=== PATIENT | female | born 1960 | race Caucasian/White ===

== ENCOUNTER 2017-03-21 02:08 | Emergency (ER) | payer OTHER ==
--- NOTE | 2017-03-21 02:27 | EDM.PDOC ---
ED HPI GENERAL MEDICAL PROBLEM - General Chief Complaint: Headache Stated Complaint: HEADACHE Time Seen by Provider: 03/21/17 02:23 - History of Present Illness INITIAL COMMENTS - FREE TEXT/NARRATIVE: HISTORY AND PHYSICAL: History of present illness: Patient is 56-year-old female presents with a concern of migraine headache and sinus infection states that similar episodes in the past she drove here herself inns requesting antibiotics for presumptive sinus infection states she had congestion with left-sided headache consistent with prior episodes that did respond to antibiotics she states at times is also triggers her migraine headache. Review of systems: As per history of present illness and below otherwise all systems reviewed and negative. Past medical history: As per history of present illness and as reviewed below otherwise noncontributory. Surgical history: As per history of present illness and as reviewed below otherwise noncontributory. Social history: No reported history of drug or alcohol abuse. Family history: As per history of present illness and as reviewed below otherwise noncontributory. Physical exam: HEENT: Atraumatic, normocephalic, pupils reactive, negative for conjunctival pallor or scleral icterus, mucous membranes moist, throat clear, neck supple, nontender, trachea midline. Lungs: Clear to auscultation, breath sounds equal bilaterally, chest nontender. Heart: S1S2, regular, negative for clicks, rubs, or JVD. Abdomen: Soft, nondistended, nontender. Negative for masses or hepatosplenomegaly. Negative for costovertebral tenderness. Pelvis: Stable nontender. Genitourinary: Deferred. Rectal: Deferred. Extremities: Atraumatic, negative for cords or calf pain. Neurovascular unremarkable. Neuro: Awake, alert, oriented. Cranial nerves II through XII unremarkable. Cerebellum unremarkable. Motor and sensory unremarkable throughout. Exam nonfocal. Diagnostics: Deferred Therapeutics: Deferred Impression: #1 sinusitis #2 migraine headache Definitive disposition and diagnosis as appropriate pending reevaluation and review of above. 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 OB/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 History: 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 Musculoskeletal History: Reports: None Neurological History: Reports: Migraines Other Neuro History: Sinus headaches, also daughter had terrible accident but 1 yr now and continues with issues they are helping her in her recovery Psychiatric History: Reports: Anxiety, Depression Other Psychiatric History: as related currently in past year with daughter requiring follow through post a bad accident Endocrine/Metabolic History: Reports: None Hematologic History: Reports: None Other Hematologic History: Lately no anemia Immunologic History: Reports: None Oncologic (Cancer) History: Reports: None Dermatologic History: Reports: None - Infectious Disease History Infectious Disease History: Reports: Chicken Pox - Past Surgical History Head Surgeries/Procedures: Reports: None HEENT Surgical History: Reports: Naso-Sinus Surgery Female Surgical History: Reports: Section Other Female Surgeries/Procedures: kidney stones blasted Neurological Surgical History: Reports: None Musculoskeletal Surgical History: Reports: Other (See Below) Other Musculoskeletal Surgeries/Procedures:: right knee surgery Social & Family History - Family History Family Medical History: Noncontributory - Tobacco Use Smoking Status *Q: Current Every Day Smoker Years of Tobacco use: 2 Packs/Tins Daily: 0.2 Second Hand Smoke Exposure: No - Caffeine Use Caffeine Use: Reports: Soda Caffeine Use Comment: 2drinks/day - Alcohol Use Days Per Week of Alcohol Use: 1 Number of Drinks Per Day: 1 Total Drinks Per Week: 1 - Recreational Drug Use Recreational Drug Use: No ED ROS GENERAL - Review of Systems Review Of Systems: ROS reveals no pertinent complaints other than HPI. ED EXAM, GENERAL - Physical Exam Exam: See Below (See dictation) Course - Vital Signs Last Recorded V/S: Last Vital Signs Temp 35.5 C 03/21/17 02:15 Pulse 53 L 03/21/17 02:15 Resp 19 03/21/17 02:15 BP 118/76 03/21/17 02:15 Pulse Ox 100 03/21/17 02:15 Departure - Departure Time of Disposition: 02:26 Disposition: Home, Self-Care 01 Condition: Good Clinical Impression: Sinusitis, Migraine - Discharge Information Referrals: PCP,None [Primary Care Provider] -
[2017-03-21 02:47] VITALS: BP 106/79
== END 2017-03-21 02:42 | disposition home or self-care (01) ==
LOC: MW.ED 02:08
DX: G43.909 Migraine, unspecified, not intractable, without status migrainosus (principal); J32.9 Chronic sinusitis, unspecified; F17.210 Nicotine dependence, cigarettes, uncomplicated; F32.9 Major depressive disorder, single episode, unspecified; Z79.899 Other long term (current) drug therapy; Z88.1 Allergy status to other antibiotic agents
CPT/HCPCS: 99282; 99283

== ENCOUNTER 2017-08-03 08:11 | Emergency (ER) | payer OTHER ==
[2017-08-03] MEDS ORDERED: Sodium Chloride 0.9% 1,000 ML IV ONE (08:33)
[2017-08-03] MEDS ORDERED: cefTRIAXone 1,000 MG in Sodium Chloride 0.9% 50 ML IV ONE (08:33)
--- NOTE | 2017-08-03 08:33 | EDM.PDOC ---
ED HPI GENERAL MEDICAL PROBLEM - General Chief Complaint: ENT Problem Stated Complaint: SORE THROAT Time Seen by Provider: 08/03/17 08:26 - History of Present Illness INITIAL COMMENTS - FREE TEXT/NARRATIVE: HISTORY AND PHYSICAL: History of present illness: Patient is a 56-year-old female presents with a concern of sore throat 1 day she denies fever chills nausea vomiting chest pain shortness of breath other concern Review of systems: As per history of present illness and below otherwise all systems reviewed and negative. Past medical history: As per history of present illness and as reviewed below otherwise noncontributory. Surgical history: As per history of present illness and as reviewed below otherwise noncontributory. Social history: No reported history of drug or alcohol abuse. Family history: As per history of present illness and as reviewed below otherwise noncontributory. Physical exam: HEENT: Atraumatic, normocephalic, pupils reactive, negative for conjunctival pallor or scleral icterus, mucous membranes dry, throat injected no peritonsillar fullness ovular deviation trismus or hot potato voice, neck supple , nontender, trachea midline. Lungs: Clear to auscultation, breath sounds equal bilaterally, chest nontender. Heart: S1S2, regular, negative for clicks, rubs, or JVD. Abdomen: Soft, nondistended, nontender. Negative for masses or hepatosplenomegaly. Negative for costovertebral tenderness. Pelvis: Stable nontender. Genitourinary: Deferred. Rectal: Deferred. Extremities: Atraumatic, negative for cords or calf pain. Neurovascular unremarkable. Neuro: Awake, alert, oriented. Cranial nerves II through XII unremarkable. Cerebellum unremarkable. Motor and sensory unremarkable throughout. Exam nonfocal. Diagnostics: Rapid strep Therapeutics: Saline 1 L bolus Rocephin 1 g IV Tylenol with codeine 10 mL by mouth Impression: #1 pharyngitis #2 dehydration Definitive disposition and diagnosis as appropriate pending reevaluation and review of above. 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 OB/BYN History: 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 Musculoskeletal History: Reports: None Neurological History: Reports: Migraines Other Neuro History: Sinus headaches, also daughter had terrible accident but 1 yr now and continues with issues they are helping her in her recovery Psychiatric History: Reports: Anxiety, Depression Other Psychiatric History: as related currently in past year with daughter requiring follow through post a bad accident Endocrine/Metabolic History: Reports: None Hematologic History: Reports: None Other Hematologic History: Lately no anemia Immunologic History: Reports: None Oncologic (Cancer) History: Reports: None Dermatologic History: Reports: None - Infectious Disease History Infectious Disease History: Reports: Chicken Pox - Past Surgical History Head Surgeries/Procedures: Reports: None HEENT Surgical History: Reports: Naso-Sinus Surgery Female Surgical History: Reports: Section Other Female Surgeries/Procedures: kidney stones blasted Neurological Surgical History: Reports: None Musculoskeletal Surgical History: Reports: Other (See Below) Other Musculoskeletal Surgeries/Procedures:: right knee surgery Social & Family History - Family History Family Medical History: Noncontributory - Tobacco Use Smoking Status *Q: Current Every Day Smoker Years of Tobacco use: 5 Packs/Tins Daily: 0.1 Second Hand Smoke Exposure: No - Caffeine Use Caffeine Use: Reports: None Caffeine Use Comment: 2drinks/day - Alcohol Use Days Per Week of Alcohol Use: 1 Number of Drinks Per Day: 1 Total Drinks Per Week: 1 - Recreational Drug Use Recreational Drug Use: No ED ROS GENERAL - Review of Systems Review Of Systems: ROS reveals no pertinent complaints other than HPI. ED EXAM, GENERAL - Physical Exam Exam: See Below (See dictation) Course - Vital Signs Last Recorded V/S: Last Vital Signs Temp 36.4 C 08/03/17 08:23 Pulse 112 H 08/03/17 08:23 Resp 16 08/03/17 08:23 BP 92/72 08/03/17 08:23 Pulse Ox 97 08/03/17 08:23 - Orders/Labs/Meds Orders: Active Orders 24 hr Category Date Time Status Sodium Chloride 0.9% [Normal Saline] 1,000 ml Med 08/03/17 08:33 Active IV .Bolus cefTRIAXone [Rocephin] 1,000 mg Med 08/03/17 09:00 Active Dextrose 5% in Water 50 ml IV ONETIME Medication Orders Sodium Chloride (Normal Saline) 1,000 mls @ 999 mls/hr IV .Bolus ONE Stop: 08/03/17 09:33 Last Infusion: 08/03/17 09:12 Dose: 200 mls/hr Admin: 08/03/17 08:53 Dose: 999 mls/hr Ceftriaxone Sodium 1,000 mg/ (Dextrose/Water) 50 mls @ 200 mls/hr IV ONETIME ONE Stop: 08/03/17 09:14 Last Admin: 08/03/17 09:08 Dose: 200 mls/hr Meds: Medications Generic Name Dose Route Start Last Admin Trade Name Freq PRN Reason Stop Dose Admin Sodium Chloride 1,000 mls @ 999 mls/hr 08/03/17 08:33 08/03/17 09:12 Normal Saline IV 08/03/17 09:33 200 mls/hr .Bolus ONE Infusion Ceftriaxone Sodium 1,000 mg/ 50 mls @ 200 mls/hr 08/03/17 09:00 08/03/17 09: 08 Dextrose/Water IV 08/03/17 09:14 200 mls/hr ONETIME ONE Administration Discontinued Medications Generic Name Dose Route Start Last Admin Trade Name Freq PRN Reason Stop Dose Admin Acetaminophen/Codeine Phosphate 10 ml 08/03/17 08:34 08/03/17 08:40 Tylenol/Codeine 120-12 Mg/5 Ml PO 08/03/17 08:35 10 ml ONETIME ONE Administration Ceftriaxone Sodium 1,000 mg/ 50 mls @ 200 mls/hr 08/03/17 08:33 08/03/17 09: 03 Sodium Chloride IV 08/03/17 08:47 Not Given ONETIME ONE Departure - Departure Time of Disposition: 09:13 Disposition: Home, Self-Care 01 Condition: Good Clinical Impression: Streptococcal pharyngitis - Discharge Information Referrals: Andres Person MD [Primary Care Provider] - Forms: ED Department Discharge Additional Instructions: The following information is given to patients seen in the emergency department who are being discharged to home. This information is to outline your options for follow-up care. We provide all patients seen in our emergency department with a follow-up referral. The need for follow-up, as well as the timing and circumstances, are variable depending upon the specifics of your emergency department visit. If you don't have a primary care physician on staff, we will provide you with a referral. We always advise you to contact your personal physician following an emergency department visit to inform them of the circumstance of the visit and for follow-up with them and/or the need for any referrals to a consulting specialist. The emergency department will also refer you to a specialist when appropriate. This referral assures that you have the opportunity for followup care with a specialist. All of these measure are taken in an effort to provide you with optimal care, which includes your followup. Under all circumstances we always encourage you to contact your private physician who remains a resource for coordinating your care. When calling for followup care, please make the office aware that this follow-up is from your recent emergency room visit. If for any reason you are refused follow-up, please contact the [facility] emergency department at and asked to speak to the emergency department charge nurse. Keflex Tylenol with Codeine as prescribed push fluids follow-up primary medical doctor call schedule routine appointment and return as needed as discussed - My Orders Last 24 Hours: My Active Orders 08/03/17 08:33 Sodium Chloride 0.9% [Normal Saline] 1,000 ml IV .Bolus 08/03/17 09:00 cefTRIAXone [Rocephin] 1,000 mg Dextrose 5% in Water 50 ml IV ONETIME - Assessment/Plan Last 24 Hours: My Active Orders 08/03/17 08:33 Sodium Chloride 0.9% [Normal Saline] 1,000 ml IV .Bolus 08/03/17 09:00 cefTRIAXone [Rocephin] 1,000 mg Dextrose 5% in Water 50 ml IV ONETIME
[2017-08-03] MEDS ORDERED: Acetaminophen/Codeine 120-12 MG/5 ML Soln 5 ML UD Cup PO ONE (08:34)
[2017-08-03] MEDS ORDERED: cefTRIAXone 1,000 MG in Dextrose 5% in Water 50 ML IV ONE ×2 (09:00)
[2017-08-03 13:19] VITALS: BP 107/63
== END 2017-08-03 10:35 | disposition home or self-care (01) ==
LOC: MW.ED 08:11
DX: J02.0 Streptococcal pharyngitis (principal); E86.0 Dehydration; F17.210 Nicotine dependence, cigarettes, uncomplicated; F41.9 Anxiety disorder, unspecified; F32.9 Major depressive disorder, single episode, unspecified; Z88.1 Allergy status to other antibiotic agents; Z79.899 Other long term (current) drug therapy; Z87.442 Personal history of urinary calculi
CPT/HCPCS: 87880; 96361; 96365; 99283; A9270; J0696; J7040; J7060

== ENCOUNTER 2018-12-26 16:22 | Emergency (ER) | payer OTHER ==
--- NOTE | 2018-12-26 16:59 | EDM.PDOC ---
ED HPI GENERAL MEDICAL PROBLEM - General Chief Complaint: Respiratory Problem Stated Complaint: COUGH AND LUNG PAIN Time Seen by Provider: 12/26/18 16:24 Source of Information: Reports: Patient History Limitations: Reports: No Limitations - History of Present Illness INITIAL COMMENTS - FREE TEXT/NARRATIVE: HISTORY AND PHYSICAL: History of present illness: Patient is a 58-year-old female presenting to the emergency room today for concerns of pneumonia. Patient states she developed a cold Friday night this past week. She states on , she felt "clogged up in the head". Both and Friday she felt warm. 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 She describes feeling very tired and cold today, having to cover up with a blanket over her sweat shirt and pants. She has complaints of pain in her throat , describing it as a "fire down my throat". She denies a sore throat. She states it feels like it takes a lot to breathe, even though she is in good shape. She states she has pain in her chest when she takes a deep breath or has a deep, non productive cough. She states that she has not been coughing much today. She denies heartburn, headache, shortness of breath, nausea, vomiting, or blurry vision. Review of systems: As per history of present illness and below otherwise all systems reviewed and negative. Past medical history: As per history of present illness and as reviewed below otherwise noncontributory. Surgical history: As per history of present illness and as reviewed below otherwise noncontributory. Social history: See social history for further information Family history: As per history of present illness and as reviewed below otherwise noncontributory. Physical exam: General: Patient is a well-groomed and well-nourished 58-year-old woman. She is alert and orientated. Nontoxic appearance. Vital signs are stable and reviewed by me. HEENT: Atraumatic, normocephalic, pupils equal and reactive bilaterally, negative for conjunctival pallor or scleral icterus, mucous membranes moist, TMs normal bilaterally, throat clear, neck supple, nontender, trachea midline. No drooling or trismus noted. No meningeal signs. No hot potato voice noted. Lungs: Clear to auscultation, breath sounds equal bilaterally, chest nontender. Heart: S1S2, regular rate and rhythm without overt murmur Abdomen: Soft, nondistended, nontender. Negative for masses or hepatosplenomegaly. Negative for costovertebral tenderness. Pelvis: Stable nontender. Skin: Intact, warm, dry. No lesions or rashes noted. Extremities: Atraumatic, moves all extremities per self without difficulty or deficits, negative for cords or calf pain. Neurovascular unremarkable. Neuro: Awake, alert, oriented. Cranial nerves II through XII unremarkable. Cerebellum unremarkable. Motor and sensory unremarkable throughout. Exam nonfocal. Notes: Negative CXR and strep screening. Due to patient's longevity of symptoms and history of smoking will treat with Z-Kristian and give Tessalon Perles for comfort purposes. Supportive care measures were reviewed and discussed. Voices understanding and is agreeable to plan of care. Denies any further questions or concerns at this time. Diagnostics: Chest XRay Rapid Strep Therapeutics: None Prescription: Z-Kristian and Tessalon Perles Impression: Bronchitis Plan: 1. Take your medication as directed. 2. Warm Salt water gargles (rinse and spit) 3-4 x daily. 3. Tylenol and or ibuprofen as needed for pain management. 4. Follow-up with your primary care provider in the next 1-2 days. Return to the ED as needed and as discussed. Definitive disposition and diagnosis as appropriate pending reevaluation and review of above. 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 Musculoskeletal History: Reports: None Neurological History: Reports: Migraines Other Neuro History: Sinus headaches, also daughter had terrible accident but 1 yr now and continues with issues they are helping her in her recovery Psychiatric History: Reports: Anxiety, Depression Other Psychiatric History: as related currently in past year with daughter requiring follow through post a bad accident Endocrine/Metabolic History: Reports: None Hematologic History: Reports: None Other Hematologic History: Lately no anemia Immunologic History: Reports: None Oncologic (Cancer) History: Reports: None Dermatologic History: Reports: None - Infectious Disease History Infectious Disease History: Reports: Chicken Pox - Past Surgical History Head Surgeries/Procedures: Reports: None HEENT Surgical History: Reports: Naso-Sinus Surgery Female Surgical History: Reports: Hysterectomy Other Female Surgeries/Procedures: kidney stones blasted Neurological Surgical History: Reports: None Musculoskeletal Surgical History: Reports: Other (See Below) Other Musculoskeletal Surgeries/Procedures:: right knee surgery Social & Family History - Family History Family Medical History: Noncontributory - Tobacco Use Smoking Status *Q: Current Every Day Smoker Years of Tobacco use: 5 Packs/Tins Daily: 0.5 - Caffeine Use Caffeine Use: Reports: Soda Caffeine Use Comment: 2drinks/day - Recreational Drug Use Recreational Drug Use: No ED ROS GENERAL - Review of Systems Review Of Systems: ROS reveals no pertinent complaints other than HPI. ED EXAM, GENERAL - Physical Exam Exam: See Below (See dictation) Course - Vital Signs Last Recorded V/S: Last Vital Signs Temp 96.9 F 12/26/18 16:33 Pulse 80 12/26/18 16:33 Resp 18 12/26/18 16:33 BP 126/75 12/26/18 16:33 Pulse Ox 99 12/26/18 16:33 - Orders/Labs/Meds Orders: Active Orders 24 hr Category Date Time Status Chest 2V [CR] Stat Exams 12/26/18 16:26 Taken CULTURE STREP A CONFIRMATION [RM] Stat Lab 12/26/18 16:44 Results STREP SCRN A RAPID W CULT CONF [RM] Stat Lab 12/26/18 16:44 Results Departure - Departure Time of Disposition: 17:12 Disposition: Home, Self-Care 01 Clinical Impression: Bronchitis - Discharge Information Instructions: Acute Bronchitis, Adult, [id number] Referrals: Andres Person MD [Primary Care Provider] - Forms: ED Department Discharge Additional Instructions: The following information is given to patients seen in the emergency department who are being discharged to home. This information is to outline your options for follow-up care. We provide all patients seen in our emergency department with a follow-up referral. The need for follow-up, as well as the timing and circumstances, are variable depending upon the specifics of your emergency department visit. If you don't have a primary care physician on staff, we will provide you with a referral. We always advise you to contact your personal physician following an emergency department visit to inform them of the circumstance of the visit and for follow-up with them and/or the need for any referrals to a consulting specialist. The emergency department will also refer you to a specialist when appropriate. This referral assures that you have the opportunity for follow-up care with a specialist. All of these measure are taken in an effort to provide you with optimal care, which includes your follow-up. Under all circumstances we always encourage you to contact your private physician who remains a resource for coordinating your care. When calling for follow-up care, please make the office aware that this follow-up is from your recent emergency room visit. If for any reason you are refused follow-up, please contact the [facility] Emergency Department at and asked to speak to the emergency department charge nurse. [facility] [address] [place] [address] [address] 1. Take your medication as directed. 2. Warm Salt water gargles (rinse and spit) 3-4 x daily. Please get a new tooth brush after completion of your medication 3. Tylenol and or ibuprofen as needed for pain management. 4. Follow-up with your primary care provider in the next 1-2 days. Return to the ED as needed and as discussed. - My Orders Last 24 Hours: My Active Orders 12/26/18 16:26 Chest 2V [CR] Stat 12/26/18 16:44 CULTURE STREP A CONFIRMATION [RM] Stat STREP SCRN A RAPID W CULT CONF [RM] Stat - Assessment/Plan Last 24 Hours: My Active Orders 12/26/18 16:26 Chest 2V [CR] Stat 12/26/18 16:44 CULTURE STREP A CONFIRMATION [RM] Stat STREP SCRN A RAPID W CULT CONF [RM] Stat
--- NOTE | 2018-12-26 17:24 | CR ---
Indication: Cough Technique: PA and lateral (2) views of the chest. Comparison: 01/08/2016 Findings: Normal heart and mediastinum. Lungs and pleural spaces clear. No acute or aggressive osseous abnormality. Impression: Normal chest radiograph. No evidence of pneumonia Dictated by Adan Davis MD @ Dec 26 2018 5:20PM Signed by Dr. Adan Davis @ Dec 26 2018 5:23PM
[2018-12-26 17:59] VITALS: BP 107/70
== END 2018-12-26 17:40 | disposition home or self-care (01) ==
LOC: MW.ED 16:22
DX: J40 Bronchitis, not specified as acute or chronic (principal); F17.210 Nicotine dependence, cigarettes, uncomplicated; Z98.890 Other specified postprocedural states; Z90.710 Acquired absence of both cervix and uterus; Z88.1 Allergy status to other antibiotic agents
CPT/HCPCS: 71046; 71046-26; 87081; 87880-QW; 99283-25